=== PATIENT | female | born 1985 | race Caucasian/White ===

== ENCOUNTER 2021-10-21 08:18 | Outpatient (CLI) | payer BC, SELFPAY ==
--- NOTE | 2021-10-21 08:30 | MM_ITS ---
WS: [id number] DIAGNOSTIC LEFT DIGITAL BREAST TOMOSYNTHESIS MAMMOGRAPHY WITH CAD. LEFT breast ultrasound, limited HISTORY: MASS OF LOWER OUTER QUADRANT LEFT BREAST COMPARISON: None available. Technique: CC, MLO and ML views. Spot compression LEFT CC and MLO. Breast composition: There are scattered areas of fibroglandular density. Marker is placed in the ant erior lateral LEFT breast at the area of palpable abnormality. There are some scattered fibroglandula r densities. No distortion or mass identified. No calcifications. LEFT breast ultrasound, limited. Ultrasound is directed to the LEFT breast in the area of palpable abnormality. Ultrasound directed to the 3:00, 2 cm from the nipple. There is no mass or distortion identified. No skin thickening. MM/[place] [id number] IMPRESSION: BI-RADS: 2-Benign FOLLOW UP: Age 39 LACK OF RADIOGRAPHIC EVIDENCE OF MALIGNANCY SHOULD NOT DELAY BIOPSY IF A CLINIC ALLY SUSPICIOUS MASS IS PRESENT.
== END 2021-10-21 08:19 | disposition home or self-care (01) ==
PROVIDERS: Visit Provider Electrodiagnostic Medicine
DX: N63.23 Unspecified lump in the left breast, lower outer quadrant (principal)
CPT/HCPCS: 76642; 77061

== ENCOUNTER → 2024-07-26 09:07 | Outpatient (BNVA) | payer BC, SELFPAY | PROVIDERS: PCP Electrodiagnostic Medicine; Visit Provider Student in an Organized Health Care Education/Training Program | DX: G56.01 Carpal tunnel syndrome, right upper limb (principal); M67.431 Ganglion, right wrist | CPT/HCPCS: 73110 ==

== ENCOUNTER 2024-09-14 08:22 | Day surgery (SDC) | payer BC, SELFPAY ==
[2024-09-14] VITALS (9 sets, daily range): BP systolic 88–130; BP diastolic 52–84; PULSE 62–86; RESP 16–18; TEMP 36.1; O2SAT 95–99; BMI 29.4
[2024-09-14] MEDS: sodium chloride 0.9% 1,000 ML 30 ML IV (09:15)
[2024-09-14] MEDS: scopolamine 1 mg PATCH 1 PATCH TRANSDERMA (09:17)
[2024-09-14] MEDS: acetaminophen 1,000 MG/100 ML PIGGYBACK 400 MG IV (09:17)
[2024-09-14] MEDS: ketorolac 30 mg/mL INJ IVP (09:18)
[2024-09-14 09:39] LABS: OR HCG Qualitative Urine Negative (Negative)
--- NOTE | 2024-09-14 09:39 | ANES.PREANE2 ---
Pre-Anesthetic Assessment Height/Weight: Height 1.57 m Weight 73.028 kg BP O2 Del Method 130/84 Room Air 09/14/24 09:17 09/14/24 08:55 Operation Date: 09/14/24 10:00 Proposed Procedures p Right Dorsal Wrist Excision Of Ganglion Cyst(Right) - Carlos Clinton, Familial anesthetic complications: None Was Beta Jennifer taken within 24 hours: N/A Was Clonidine taken within 24 hours: N/A Last intake: Intake Last Liquid Date 09/13/24 Last Liquid Time 22:30 Last Solid Date 09/13/24 Last Solid Time 19:00 Social No alcohol and No tobacco Exam alert, oriented x 3, clear to auscultation bilaterally and regular rate & rhythm Airway Mallampati: Class I Dentition: full Anesthetic Plan ASA status: 1 Anesthesia: MAC Risk of > 500 ml blood loss (7ml/kg in children): No Medications/Allergies Home Medications ?Medication ?Instructions ?Recorded ?Confirmed ?Last Taken ?Type cetirizine 10 mg tablet (Zyrtec) 10 mg PO DAILY 09/13/24 09/13/24 09/13/24 History Allergies Allergy/AdvReac Type Severity Reaction Status Date / Time No Known Allergies Allergy Unverified 09/13/24 09:12 Current Medications Generic Name Dose Route Start Last Admin Trade Name Freq PRN Reason Stop Dose Admin Sodium Chloride 1,000 mls @ 30 mls/hr 09/14/24 08:30 09/14/24 09:15 Sodium Chloride 0.9% IV 09/15/24 08:29 30 mls/hr .Q24H LIDA Administration PFSH Anesthesia Social History Smoking and tobacco/nicotine status: current every day tobacco/nicotine user Female Reproductive History Date of last menstrual period: 08/28/24
--- NOTE | 2024-09-14 09:43 | W.PM.OPSUD ---
Surgery/Procedure H&P Update DATE OF PROCEDURE: September 14, 2024 DATE H&P PERFORMED: 09/06/24 H&P UPDATE INFORMATION: I have reviewed H&P completed within last 30 days, I have examined patient prior to procedure and No changes to prior documentation PREOP DIAGNOSIS: Right dorsal wrist ganglion cyst PRIMARY INDICATION FOR PROCEDURE: Right dorsal wrist ganglion cyst PLANNED PROCEDURE: Operation Date: 09/14/24 10:00 Proposed Procedures p Right Dorsal Wrist Excision Of Ganglion Cyst(Right) - Carlos Paniagua DO
[2024-09-14] MEDS: ceFAZolin 2,000 MG in sodium chloride 0.9% (plus) 50 ML 100 MG IV (10:12)
[2024-09-14] MEDS: sodium bicarbonate 4.2% 0.5 mEq/mL SDV 5mL 1 MEQ INTRADERMA (10:54)
[2024-09-14] MEDS: lidocaine-epi 1% 20 mL INJ 5 ML INJECTION (10:55)
[2024-09-14] MEDS: ROPivacaine 0.5% SDV 30 mL 25 MG INJECTION (10:56)
--- NOTE | 2024-09-14 11:01 | P.BOP_ITS ---
Date of Procedure: [09/14/2024] Surgeon: Carlos Paniagua DO Pharmacy Technician(s): None Procedure(s) performed: Right dorsal wrist ganglion cyst excision (2 cm x 2 cm x 1 cm) Findings of the procedure(s): Patient went procedure as planned without issues or complications. Estimated blood loss: 2 mL Specimen(s) removed: Right dorsal wrist ganglion cyst excised sent for specimen Post-operative diagnosis: Right dorsal wrist ganglion cyst
--- NOTE | 2024-09-14 11:02 | P.OP_ITS ---
Operative Report Date of procedure: September 14, 2024 Surgeon: Carlos Paniagua DO Procedure: Preoperative diagnosis: Right dorsal wrist ganglion cyst Postoperative diagnosis: Same Procedure Right dorsal wrist ganglion cyst excision (2 cm x 2 cm x 1 cm) Specimens removed/disposition: Right?dorsal?wrist ganglion?cyst?excised and sent for pathology Surgeon: Carlos Paniagua DO Estimated blood loss: 2mL Tourniquet time 11 minutes IV fluids: 400mL Complications: None Findings: See operative report narrative Condition: stable Disposition: same day Brief History: Patient's been worked up in the outpatient setting and findings consistent with preoperative diagnosis.? Patient has a right?dorsal?wrist ganglion?cyst.? Patient has attempted conservative treatment and this has become significantly painful and continues to persist.? We talked about treatment options as far as nonoperative and operative intervention.? At this point time patient like a more permanent solution in the lowest chance of recurrence and as result through shared decision making we agreed to proceed with a right?dorsal?wrist ganglion?cyst?excision.? Patient understands risk benefits complication alternatives surgical nonsurgical treatment options.? Understanding risk of surgery patient agrees to proceed with surgical intervention for right dorsal wrist ganglion cyst excision.? All questions answered.? Consent obtained in the preoperative holding area.. Procedure: Patient seen evaluate in the preoperative holding area.? Consent was signed and reviewed with patient.? All questions were answered at that time.? Correct extremity was then marked.? Once seen evaluated by anesthesia patient was then brought back to the operative suite.? Patient was then placed in supine position all bony prominences well-padded patient was properly secured to the bed.? An armboard was then applied for the right upper extremity.? A nonsterile tourniquet was applied to the right upper extremity arm.? Patient then underwent anesthesia per the anesthesia department.? Once appropriately anesthetized the right upper extremity was then prepped and draped in standard orthopedic fashion.? Final timeout performed.? Patient received appropriate preoperative antibiotics. Under sterile aseptic technique I began with local anesthetic for my preplanned surgical site.? Then I utilized an Esmarch tourniquet to exsanguinate the right upper extremity to 250 mmHg Patient had a large soft mobile ganglion?cyst?which a incision was then centered longitudinally directly over the?cyst?over the?dorsal?aspect of the right wrist.? sharp scalpel incision was made through skin and subcutaneous tissue.? I then switched to dissection scissors and spread longitudinally to identify branches of the superficial radial nerve.? These were protected throughout the case.? I immediately encountered the ganglion?cyst?which was just distal to the extensor retinaculum and between the third and fourth?dorsal?compartments.? I then protected the tendons and identified the ganglion?cyst?subsequently dissected circumferentially all the way to the base which was connected to the?dorsal?capsule.? This was then transected at the base with bipolar e lectrocautery.? I did have to excise some of the?dorsal?capsule that communicated with the?cyst?this had a broad connection and?cyst?stalk to the?dorsal?capsule. I utilized bipolar electrocautery to to seal off the?dorsal?capsule and prevent any further?cyst?recurrence.??Cyst?was then sent for pathology. Cyst size was roughly 2 cm x 2 cm x 1 cm. I then thoroughly irrigated the wound bed tourniquet was deflated.? Hemostasis was satisfactory with bipolar electrocautery.? I then closed the incision in layered fashion with 3-0 Vicryl suture subcutaneously and running horizontal mattress nylon stitch for skin.? Xeroform over the incisions 4 x 4's ABD soft roll and a volar splint was applied.? Patient was then awakened from anesthesia and taken back in stable condition. Disposition: Patient taken back in stable condition recovering well.? Patient will receive appropriate discharge instructions as well as pain medication postoperatively.? Patient placed in a volar splint.? We will follow-up with in the orthopedic office in 2 weeks.? Patient understands of any questions or concerns and contact the office.
--- NOTE | 2024-09-14 11:19 | PM.PACU ---
PACU note Narrative: Patient is a 39-year-old female who just underwent a right wrist ganglion cyst excision. Patient transferred to PACU in stable condition. Pain is well controlled. Dressing and splint on hand is dry and in place. Patient's fingers are warm and well-perfused. Patient can wiggle fingers. normal cap refill under 2 seconds. Patient has normal elbow range of motion. Sensation to fingers intact. Exam: awake Disposition: discharged
--- NOTE | 2024-09-14 12:20 | ANE.PACU2 ---
Inpatient post-anesthesia follow up: Airway intact: Yes Vital signs: Temperature 97 F Pulse Rate 72 Respiratory Rate 18 Blood Pressure 122/76 Pulse Oximetry 98 Oxygen Delivery Me thod Room Air Oxygen Flow Rate 8 Fraction of Inspir ed Oxygen Hydration adequate: Yes Nausea and vomiting: No Pain level: 1 Mental status: Baseline
== END 2024-09-14 12:23 | disposition home or self-care (01) ==
PROVIDERS: Anesthesiology; PCP Electrodiagnostic Medicine; Visit Provider Student in an Organized Health Care Education/Training Program
PROC: (CPT 25111; principal; 2024-09-14 10:00)
DX: M67.431 Ganglion, right wrist (principal); F17.200 Nicotine dependence, unspecified, uncomplicated
CPT/HCPCS: 25111; 81025; 88304; J0131; J0690; J1100; J1885; J2250; J2405; J2704; J2795; J3010; J7030; J9999